=== PATIENT | female | born 1950 ===

== ENCOUNTER 2019-03-02 08:16 | Inpatient (IN) | payer MEDICARE, OTHER ==
--- NOTE | 2019-03-01 14:38 | NUR ---
[employer] translation services used to obtained medical history with Jaimee as concaver ID# [id number].
[2019-03-02] VITALS (13 sets, daily range): BP systolic 101–147; BP diastolic 54–82
[~2019-03-02] VITALS: Ht 162.6 cm; Wt 79.4 kg
[~2019-03-02 08:16] MED LIST: FUROSEMIDE20 M1 ORAL; LOSARTAN POTASS25 MG ORAL; METOPROLOL SUCC50 MG ORAL; OMEPRAZOLE20 M2 ORAL; PRAVASTATIN SOD20 M1 ORAL; ceFAZolin sod 1 GM in NS 55 ML IVPB ONE
[2019-03-02] MEDS ORDERED: NAPROXEN250 M1 PO (09:10)
[2019-03-02] MEDS ORDERED: LOSARTAN-HCTZ1 EAC1 ORAL (09:10)
[2019-03-02] MEDS ORDERED: ASPIRIN81 MG ORAL (09:10)
[2019-03-02] MEDS ORDERED: PRAVASTATIN SOD40 M1 ORAL (09:10)
[2019-03-02] MEDS ORDERED: OYSTER SHELL 51 EAC2 PO (09:10)
[2019-03-02] MEDS ORDERED: LINZESS145 MCG PO (09:10)
[2019-03-02] MEDS ORDERED: MULTAQ400 MG ORAL (09:10)
[2019-03-02] MEDS ORDERED: OMEPRAZOLE20 M3 ORAL (09:10)
[2019-03-02] MEDS ORDERED: SYNTHROID25 MCG ORAL (09:10)
[2019-03-02] MEDS ORDERED: METOPROLOL SUCC50 MG ORAL (09:10)
--- NOTE | 2019-03-02 10:24 | Anethesia Preoperative Eval ---
Anesthesia Pre-op PMH/ROS General Date of Evaluation: Mar 02, 2019 Anesthesiologist: Hal ASA Score: ASA 3 Mallampati Score Class I : Soft palate, uvula, fauces, pillars visible Class II: Soft palate, uvula, fauces visible Class III: Soft palate, base of uvula visible Class IV: Only hard plate visible Mallampati Classification: Class II Surgeon: Myrna Diagnosis: Bladder prolapse Surgical Procedure: Cystoscopy, cystocele, vaginal sling Anesthesia History: none Family History: no anesthesia problems Allergies: Coded Allergies: PENICILLINS (Verified Allergy, Intermediate, swelling; throat closes- up, 03/01/19) Medications: see eMAR Patient NPO?: Yes NPO Date: Mar 01, 2019 NPO Time: 1999 Past Medical History Cardiovascular: Reports: HTN, arrhythmia, other - HLD; Denies: CAD, OR, valve dz Pulmonary: Denies: asthma, COPD, MIMI, other Gastrointestinal/Genitourinary: Reports: GERD, other - bladder prolapse; Denies: CRI, ESRD Neurologic/Psychiatric: Reports: CVA; Denies: dementia, depression/anxiety, TIA, other Endocrine: Reports: hypothyroidism; Denies: DM, steroids, other HEENT: 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 Exam Physician Exam Last Vital Signs Date Time Temp Pulse Resp B/P (MAP) Pulse Ox O2 Delivery O2 Flow Rate FiO2 03/02/19 09:30 Room Air 03/02/19 09:01 98.7 64 18 138/82 (100) 99 Constitutional: NAD Cardiovascular: RRR Respiratory: CTA Airway Exam Mallampati Score: Class II MO: full ROM: full Dentures: upper, lower Anesthesia Pre-op A/P Labs see chart Studies Pre-op Studies: EKG - sr Risk Assessment & Plan Assessment: ASA III Plan: GA Status Change Before Surgery: No Pre-Antibiotics Drug: Susan Limon MD Mar 02, 2019 10:24
[2019-03-02] MEDS ORDERED: NeoSporin Gu Irrig 1ml Amp IRRIG ONE (10:43)
[2019-03-02] MEDS ORDERED: Bupivacaine 0.25% Inj 30ml INJ ONE (10:43)
[2019-03-02] MEDS ORDERED: Bacitracin 50000 Units Vial ONE (10:43)
[2019-03-02] MEDS ORDERED: Bupivacaine w/Epi 0.5% 30ml Vial INJ ONE (10:43)
[2019-03-02] MEDS ORDERED: Clindamycin 600mg 50 ML IV ONE (10:44)
[2019-03-02] MEDS ORDERED: ProvayBlue 5mg/ml 10ml amp INJ ONE (10:45)
[2019-03-02] MEDS ORDERED: Propofol 200mg/20ml IV ONE (10:50)
[2019-03-02] MEDS ORDERED: Lidocaine 1% MPF 10mg/ml 5ml ONE (10:50)
[2019-03-02] MEDS ORDERED: fentaNYL 100 mcg/2 mL IV ONE (10:50)
[2019-03-02] MEDS ORDERED: Zemuron 50mg/5ml Inj IV ONE (10:56)
[2019-03-02] MEDS ORDERED: LR 1000ml ONE (11:00)
[2019-03-02] MEDS ORDERED: Sterile Water For Irrig 2000ml IRRIG ONE (11:00)
[2019-03-02] MEDS ORDERED: NS Irrig 2000ml IRRIG ONE (11:00)
[2019-03-02] MEDS ORDERED: Sterile Water Irrig 1000ml IRRIG ONE (11:00)
--- NOTE | 2019-03-02 11:11 | Pre-Procedure Note/Attestation ---
Pre-Procedure Note/Attestation Complete Prior to Procedure Planned Procedure: not applicable Procedure Narrative: cystocele rectocele repair vaginal sling cystoscopy Indications for Procedure Pre-Operative Diagnosis: prolapse Attestation I attest that I discussed the nature of the procedure; its benefits; risks and complications; and alternatives (and the risks and benefits of such alternatives ), prior to the procedure, with the patient (or the patient's legal market survey representative). I attest that, if there was a reasonable possibility of needing a blood transfusion, the patient (or the patient's legal market survey representative) was given the [facility] standardized written summary, pursuant to the Ced Yobany Blood Safety Act ([place] Health and Safety Code # 1645, as amended). I attest that I re-evaluated the patient just prior to the surgery and that there has been no change in the patient's H&P, except as documented below: Erik Norris MD Mar 02, 2019 11:11
[2019-03-02] MEDS ORDERED: LR 1000ml 1,000 ML IVLG SCH (11:38)
[2019-03-02] MEDS ORDERED: Ketorolac 30mg Inj IV PRN ×2 (11:45→15:01)
[2019-03-02] MEDS ORDERED: Hydromorphone 0.5mg/0.5ml inj IVP PRN (11:45)
[2019-03-02] MEDS ORDERED: LORazepam Inj 2mg/ml 1ml IV PRN (11:45)
[2019-03-02] MEDS ORDERED: fentaNYL 100 mcg/2 mL IV PRN (11:45)
[2019-03-02] MEDS ORDERED: DiphenhydrAMINE 50mg/ml Inj IVP PRN (11:45)
--- NOTE | 2019-03-02 12:41 | Brief Operative Note ---
Immediate Post Operative Note Operative Note Pre-op Diagnosis: prolapse Procedure: cystocele and rectocele reapir vaginal sling cystoscopy Post-op Diagnosis: same Post-op Diagnosis: same as pre-op Surgeon: Bradford Norris Anesthesia: general Specimen: none Complications: none Condition: stable Fluids: 1000 Estimated Blood Loss: minimal Drains: none Implant(s) used?: No Erik oNrris MD Mar 02, 2019 12:41
[2019-03-02] MEDS ORDERED: HYDROcodone/Acetamin 5/325 tab ORAL PRN (12:45)
--- NOTE | 2019-03-02 12:47 | Immediate Post-Op Evaluation ---
Immediate Post-Op Evalulation Immediate Post-Op Evalulation Procedure: Vaginal sling, cystocele repair, rectocele repair, cystoscopy Date of Evaluation: Mar 02, 2019 Time of Evaluation: 12:48 IV Fluids: 800 Blood Products: 0 Estimated Blood Loss: min Urinary Output: 0 Blood Pressure Systolic: 147 Blood Pressure Diastolic: 65 Pulse Rate: 58 Respiratory Rate: 16 O2 Sat by Pulse Oximetry: 100 Temperature (Fahrenheit): 97.5 Pain Score (1-10): 0 Nausea: No Vomiting: No Complications 0 Patient Status: awake, reacts, patent, none Hydration Status: adequate Drug: Clindamycin 600mg Given Within 1 Hr of Incision: Yes Susan Cole MD Mar 02, 2019 12:47
[2019-03-02 13:51] LABS: BASOPHILS % (AUTO) 0.8 % (0.0-2.0); HEMATOCRIT 37.2 % (37.0-47.0); HEMOGLOBIN 12.4 G/DL (12.0-16.0); LYMPHOCYTES % (AUTO) 25.8 % (20.0-45.0); MEAN CORPUSCULAR VOLUME 92 FL (80-99); MONOCYTES % (AUTO) 7.8 % (1.0-10.0); NEUTROPHILS % (AUTO) 64.6 % (45.0-75.0); PLATELET COUNT 218 K/UL (150-450); RED BLOOD COUNT 4.06 M/UL (4.20-5.40); RED CELL DISTRIBUTION WIDTH 11.6 % (11.6-14.8); WHITE BLOOD COUNT 6.9 K/UL (4.8-10.8)
[2019-03-02] MEDS ORDERED: ceFAZolin sod 2 GM in D5W 110 ML IV SCH (14:00)
[2019-03-02 14:06] LABS: ANION GAP 8 mmol/L (5-15); BLOOD UREA NITROGEN 15 mg/dL (7-18); CALCIUM 9.1 MG/DL (8.5-10.1); CARBON DIOXIDE 29 MMOL/L (21-32); CHLORIDE 108 MMOL/L (98-107); CREATININE 0.7 MG/DL (0.55-1.30); POTASSIUM 3.5 MMOL/L (3.5-5.1); SODIUM 145 MMOL/L (136-145)
--- NOTE | 2019-03-02 14:15 | NUR ---
NURSE NOTES: Received report from MIKA Zaldivar. Pt in bed, resting, A/Ox4, no complaints of pain, assessment done, see flowsheet, no apparent bleeding noted, Robbins in place and draining, vitals obtained and stable, will continue vitals per unit protocol for post-op pt. Family at bedside, bed in lowest position, call light within reach.
[2019-03-02] MEDS ORDERED: HYDROmorphone 1mg/ml Carpuject IVP PRN (15:01)
--- NOTE | 2019-03-02 15:04 | NUR ---
NURSE NOTES: Left message for Dr. Norris regarding Ancef order, pt has allergy to PCN.
[2019-03-02] MEDS: D5 1/2NS w/KCl 20mEq 1,000 ML IV SCH (16:13)
--- NOTE | 2019-03-02 19:20 | NUR ---
NURSE NOTES: Report taken from MIKA Madrigal. Patient is awake and in bed, A&Ox4, family at bedside. No signs of distress on room air. IV site c/d/i and patent, D5 1/2 NS +20KCl at 100 ml/hr runnings, will discharge IV once patient able to intake 500cc fluids PO. MD left order to contact within certain parameters of BP, Temp, and UO, continue to monitor. No skin issues present. Surgical site dressing c/d/i, no excessive drainage. Robbins c/d/i and flowing light blue urine, color due to fluid given during procedure. Bed in lowest position, call light within reach.
[2019-03-03] VITALS: BP 87/46
--- NOTE | 2019-03-03 00:10 | NUR ---
NURSE NOTES: Patients BP 87/46. Contacted MD per order, awaiting return call.
[2019-03-03] MEDS: D5 1/2NS w/KCl 20mEq 1,000 ML IV SCH (02:11)
--- NOTE | 2019-03-03 02:15 | NUR ---
NURSE NOTES: Patient urine output over 8 hrs ([id number]): 750 cc. Urine indigo/green color.
[2019-03-03 07:04] LABS: ANION GAP 8 mmol/L (5-15); BLOOD UREA NITROGEN 10 mg/dL (7-18); CALCIUM 8.1 MG/DL (8.5-10.1); CARBON DIOXIDE 28 MMOL/L (21-32); CHLORIDE 107 MMOL/L (98-107); CREATININE 0.8 MG/DL (0.55-1.30); POTASSIUM 3.9 MMOL/L (3.5-5.1); SODIUM 143 MMOL/L (136-145)
[2019-03-03 07:05] LABS: BASOPHILS % (AUTO) 0.4 % (0.0-2.0); EOSINOPHILS % (AUTO) 0.4 % (0.0-3.0); HEMATOCRIT 30.1 % (37.0-47.0); LYMPHOCYTES % (AUTO) 17.4 % (20.0-45.0); MEAN CORPUSCULAR VOLUME 92 FL (80-99); MONOCYTES % (AUTO) 9.4 % (1.0-10.0); NEUTROPHILS % (AUTO) 72.3 % (45.0-75.0); PLATELET COUNT 193 K/UL (150-450); RED BLOOD COUNT 3.28 M/UL (4.20-5.40); RED CELL DISTRIBUTION WIDTH 11.7 % (11.6-14.8); WHITE BLOOD COUNT 8.2 K/UL (4.8-10.8)
--- NOTE | 2019-03-03 07:45 | NUR ---
HAND-OFF: Report given to MIKA Dunaway. Surgical packing removed per MD order. Patient awake and stable.
--- NOTE | 2019-03-03 07:54 | NUR ---
NURSE NOTES: During shift change patient alert awake with out no distress FC in place draining pale yellow urine, patient eating breakfast, bed on low position locked, call light with in reach, SCD on, reported pain 4/10 in lower abdomen, patient also reported the pain was stronger but after the packing is removed pain decreased. will continue to monitor.
[2019-03-03] MEDS ORDERED: LEVAQUIN500 MG ORAL (08:33)
--- NOTE | 2019-03-03 08:40 | NUR ---
CASE MANAGEMENT:REVIEW 03/02/19 68 YR OLD FEMALE HERE FOR ELECTIVE SURGERY SI: PROLAPSED BLADDER 98.7 64 18 138/82 99% ON RA IS; TO SURGERY FOR: CYSTOCELE & RECTOCELE REPAIR VAGINAL SLING CYSTOSCOPY : TO MED/SURG 3 EAST POST OP INTERQUAL CRITERIA MET
[2019-03-03 08:45] VITALS: BP 105/54
--- NOTE | 2019-03-03 09:10 | NUR ---
PT EVALUATION NOTE Patient seen for initial evaluation, please see evaluation for details. Patient presents with generalized weakness and impaired mobility. Patient will benefit from skilled inpatient PT intervention to address strength, balance, endurance, safety and functional mobility to return to prior level of function. Anticipate discharge home with family assistance once cleared by MD. Do not anticipate any DME needs. Addendum: 03/03/19 at 1301 by EVER PATTEN PT Amended: Links added.
--- NOTE | 2019-03-03 11:03 | 48 Hour Post Anesthesia Eval ---
Post Anesthesia Evaluation Procedure: Vaginal sling, cystocele repair, rectocele repair, cystoscopy Date of Evaluation: Mar 03, 2019 Time of Evaluation: 11:02 Blood Pressure Systolic: 108 0: 56 Pulse Rate: 72 Respiratory Rate: 20 Temperature (Fahrenheit): 97.6 O2 Sat by Pulse Oximetry: 98 Airway: patent Nausea: No Vomiting: No Pain Intensity: 1 Hydration Status: adequate Cardiopulmonary Status: stable Mental Status/LOC: patient returned to baseline Follow-up Care/Observations: n/a Post-Anesthesia Complications: none Follow-up care needed: ready to discharge Manoj Jones MD Mar 03, 2019 11:03
[2019-03-03 12:00] VITALS: BP 101/48
--- NOTE | 2019-03-03 15:23 | NUR ---
NURSE NOTES: Pt. attempt to walk x3, once with PT , x2 with RN complained of light headedness and BP dropped when patient stood up MD notified discharge canceled, ordered medication refilled. encouraged fluid intake will continue to monitor.
[2019-03-03 16:00] VITALS: BP 109/49
--- NOTE | 2019-03-03 16:30 | NUR ---
DISCHARGE PLANNING PATIENT HAS BEEN REFERRED TO [facility] T: [phone] F: [phone]
--- NOTE | 2019-03-03 18:15 | History and Physical Report ---
DATE OF ADMISSION: 03/02/2019 HISTORY OF PRESENT ILLNESS: This is a very pleasant 68-year-old female who has undergone bladder surgery yesterday by Dr. Erik Norris. She is postop day #1. She is feeling comfortable. A Robbins catheter is in place. There has been no overnight issues. PAST MEDICAL HISTORY: Hypertension, hypothyroidism, hyperlipidemia, osteoarthrosis, obesity, depression, fibromyalgia, previous right eye optic neuropathy. SURGERIES: None. HOME MEDICATIONS: Include pravastatin, Linzess, aspirin, Synthroid, omeprazole, Lasix, and Naprosyn. SOCIAL HISTORY: No history of alcohol or tobacco usage. REVIEW OF SYSTEMS: Denies any headaches, hematemesis, melena, hematochezia, or weight loss. PHYSICAL EXAMINATION: GENERAL: Reveals a 68-year-old female. VITAL SIGNS: Blood pressure 130/70, heart rate , she is afebrile. HEENT: Unremarkable. LUNGS: Clear breath sounds bilaterally. ABDOMEN: Soft. NEUROLOGIC: Nonfocal. LABORATORY DATA: Lab testing overnight showed normal CBC and BMP. Hemoglobin is 12. IMPRESSION: 1. Postop day #1, status post bladder surgery. 2. Hypertension. 3. Hypothyroidism. 4. Depression. 5. Fibromyalgia. DISCUSSION: The patient cleared for discharge. I will write a prescription for Levaquin that she can take. Robbins will be left in place. We will order home health for PT and Robbins care. Outpatient follow up. Melvin Dueñas M.D. DR: VIKA JOB#: [id number] CC:
--- NOTE | 2019-03-03 19:13 | NUR ---
HAND-OFF: Report given to MIKA Marquez patient stable condition awake alert with out no distress, FC in place draining well, call light with in reach bed lower position locked, endorsed to MIKA Marquez regarding oral Levaquin refilled and in pharmacy.
[2019-03-03 20:00] VITALS: BP 107/72
[2019-03-03 21:00] VITALS: BP 109/70
--- NOTE | 2019-03-03 22:15 | Operative Note - Dictated ---
DATE OF OPERATION: 03/02/2019 PREOPERATIVE DIAGNOSIS: Vaginal prolapse. POSTOPERATIVE DIAGNOSIS: Vaginal prolapse. OPERATIONS: Transvaginal cystocele repair, rectocele repair, vaginal wall sling, and cystoscopy. OPERATED BY: Erik Norris M.D. ANESTHESIA: General. FINDINGS: Total vaginal prolapse. INDICATIONS FOR SURGERY: The patient developed stress and urge incontinence as well as vaginal anterior and posterior prolapse. Treatment options were explained to her in great length including all potential complications and she signed the consent. DESCRIPTION OF PROCEDURE: She was brought to the operating room, placed in lithotomy position, and prepped and draped in standard fashion. Under general anesthesia, goalpost midline incision was made and bladder was from the vaginal mucosa and dissected all the way to the retrovesical space. Retrovesical space was entered, identified sacral-spinal muscles. Using elevated anterior device made by [employer], bladder was placed in the sacrospinous ligaments and secured to the cervix from the uterus and to the lateral sides of the vaginal wall creating a nice Hammock suspension of the bladder. After that, mid urethral device was placed using MiniArc and secured in the mid urethra. Vagina was closed over the bladder and then formal rectocele repair with interrupted 0 Vicryl sutures was done supporting posterior vaginal wall. Cystoscopy was done showing no evidence of bladder perforation. Both ureteral orifices were intact. Robbins catheter was placed. Vaginal packing. Sponge count and instrument count were correct. The patient tolerated the procedure well. No evidence of complications. Erik Norris M.D. DR: MELISSA JOB#: [id number] CC:
[2019-03-04] VITALS: BP 121/54
[2019-03-04 04:00] VITALS: BP 105/61
--- NOTE | 2019-03-04 07:09 | NUR ---
HAND-OFF: Report given to MIKA Dunaway. Patient awake and hopeful to go home today. UO overnight was 1700cc. Patient in stable condition.
--- NOTE | 2019-03-04 07:54 | NUR ---
NURSE NOTES: During shift change patient alert awake with out no distress call light with in reach bed on low position locked seating on bed eating breakfast FC intact draining well.
[2019-03-04 08:00] VITALS: BP 101/63
--- NOTE | 2019-03-04 08:11 | Pulmonology Progress Note ---
Assessment/Plan Assessment/Plan IMPRESSION: 1. Postop day #2, status post bladder surgery. 2. Hypertension. 3. Hypothyroidism. 4. Depression. 5. Fibromyalgia. DISCUSSION: The patient is cleared for discharge. Held yesterday due to weakness and hypotension. Dc home on Levaquin that she can take. Robbins will be left in place. I will order home health for PT and Robbins care. Outpatient follow up. Subjective Interval Events: BP better today; feeling better Constitutional: Reports: no symptoms HEENT: Repors: no symptoms Respiratory: Reports: no symptoms Cardiovascular: Reports: no symptoms Gastrointestinal/Abdominal: Reports: no symptoms Genitourinary: Reports: no symptoms Allergies: Coded Allergies: PENICILLINS (Verified Allergy, Intermediate, swelling; throat closes- up, 03/01/19) Objective Last 24 Hour Vital Signs Date Time Temp Pulse Resp B/P (MAP) Pulse Ox O2 Delivery O2 Flow Rate FiO2 03/04/19 04:00 99.0 76 18 105/61 (76) 96 03/04/19 00:00 99.6 88 20 121/54 (76) 96 03/03/19 21:00 99.7 90 18 109/70 (83) 98 03/03/19 21:00 Nasal Cannula 2.0 03/03/19 20:31 99.5 03/03/19 20:00 101.3 92 20 107/72 (84) 98 03/03/19 16:00 99.6 83 20 109/49 (69) 98 03/03/19 12:00 99.8 85 20 101/48 (65) 98 03/03/19 11:03 72 20 98 03/03/19 10:52 97.7 03/03/19 09:00 Nasal Cannula 2.0 03/03/19 08:45 97.7 70 20 105/54 (71) 98 Intake and Output 03/03/19 03/04/19 18:59 06:59 Intake Total 980 ml Output Total 950 ml 1700 ml Balance 30 ml -1700 ml Intake Oral 980 ml Output Urine Total 950 ml 1700 ml General Appearance: no acute distress HEENT: normocephalic Respiratory/Chest: chest wall non-tender, lungs clear Cardiovascular: normal peripheral pulses, normal rate Abdomen: normal bowel sounds Current Medications Medications (Trade) Dose Ordered Sig/Birdie Route PRN Reason Start Time Stop Time Status Last Admin Dose Admin Acetaminophen (Tylenol) 650 mg Q4H PRN ORAL FEVER 03/02/19 15:02 04/01/19 15:01 03/03/19 20:01 Acetaminophen (Tylenol) 650 mg Q6H PRN ORAL Mild Pain (Pain Scale 1-3) 03/02/19 15:01 04/01/19 15:00 03/03/19 08:57 Acetaminophen/ Hydrocodone Bitart ([place] 5/325) 1 tab Q4H PRN ORAL Moderate Pain (Pain Scale 4-6) 03/02/19 12:45 03/09/19 12:44 Hydromorphone HCl (Dilaudid) 1 mg Q3H PRN IVP pain score 4-6 03/02/19 15:01 03/09/19 15:00 03/02/19 15:22 Ketorolac Tromethamine (Toradol 30mg) 15 mg Q6H PRN IV For Pain 03/02/19 15:01 03/07/19 15:00 Levofloxacin 100 ml @ 100 mls/hr Q24H IVPB 03/02/19 17:00 03/09/19 16:59 03/03/19 17:21 Ondansetron HCl (Zofran) 4 mg Q6H PRN IVP Nausea & Vomiting 03/02/19 12:45 04/01/19 12:44 03/02/19 16:12 Temazepam (Restoril) 7.5 mg DAILYPRN PRN ORAL Insomnia 03/02/19 15:02 03/09/19 15:01 03/03/19 22:01 Melvin Dueñas MD Mar 04, 2019 08:11
[2019-03-04 11:54] VITALS: BP 118/69
--- NOTE | 2019-03-04 15:42 | NUR ---
NURSE NOTES: Patient able to ambulate x2 once with PT and once with family readiness support assistant notified of discharge clearance and in the unit discharge teaching will be provided and will be DS as ordered by MD.
[2019-03-04 16:06] VITALS: BP 103/58
--- NOTE | 2019-03-04 18:27 | NUR ---
NURSE NOTES: Patient discharged from the unit stable condition, had a low grad fever and Tylenol given T. decreased to 99.4, during discharge patient accompanied by daughter and spouse. discharge instruction including catheter care provided fro patient and daughters, the FC changed to leg bag as ordered. Patient had appointment with Dr. sol Thursday for follow up. nurse called and contacted family will visit patient tomorrow. transported from unit to private vehicle with wheelchair transferred to the [facility]. Measuring cup for the urine given.
--- NOTE | 2019-03-07 14:20 | Discharge Summary ---
Discharge Summary Hospital Course Date of Admission Mar 02, 2019 at 08:16 Date of Discharge Mar 04, 2019 at 18:20 Admitting Diagnosis total vaginal prolapse Reason for Hospitalization: elective surgery ELIAN Musa is a 68 year old female who was admitted on Mar 02, 2019 at 08: 16 for total vaginal prolapse, The patient developed stress and urge incontinence as well as vaginal anterior and posterior prolapse. Treatment options were explained to her in great length, including all potential complications and she opted for surgery and signed the consent. Consultations dr Dueñas - IM Procedures s/p 03/02/[address] Norris Transvaginal cystocele repair, rectocele repair, vaginal wall sling, and cystoscopy. Hospital Course status post surgery course of recovery uneventful initially IV fluids antibiotics pain management was addressed , and pain was controlled hemodynamically stable ambulated freely use of incentive spirometry was encouraged while in the bed fall precautions maintained; safe for ambulation tolerated diet , IV fluids discontinued GI prophylaxis provided antiemetics were on board as needed blood pressure was closely monitored , remained stable Robbins catheter continued patient was instructed on Robbins care bowel regimen instituted patient was stable for discharge discharge instructions provided follow up with surgeon next week as arranged home health services were arranged for PT services and Robbins care continue Levaquin as ordered FINAL DIAGNOSES total vaginal prolapse s/p transvaginal cystocele repair, rectocele repair, vaginal wall sling, and cystoscopy HTN Hypothyroidism Depression Fibromyalgia Discharge Medications New Medications: Levofloxacin* (Levaquin*) 500 Mg Tablet 500 MG ORAL DAILY for 7 Days, TAB Continued Medications: Aspirin* (Aspirin*) 81 Mg Tab.chew 81 MG ORAL DAILY, TAB (This prescription has been renewed) Calcium Carbonate/Vitamin D3 (Oyster Shell 500-Vit D3 200 Pk) 1 Each Powd.pack 1 EACH PO DAILY, PACK (This prescription has been renewed) Dronedarone Hydrochloride (Multaq) 400 Mg Tablet 400 MG ORAL DAILY, TAB 0 Refills (This prescription has been renewed) Levothyroxine Sodium* (Synthroid*) 25 Mcg Tablet 50 MCG ORAL DAILY, TAB (This prescription has been renewed) Take in the morning on an empty stomach, at least 30 minutes before food. Linaclotide (Linzess) 145 Mcg Capsule 145 MCG PO DAILY, CAP (This prescription has been renewed) Losartan/Hydrochlorothiazide (Losartan-Hctz 100-25 Mg Tab) 1 Each Tablet 1 TAB ORAL DAILY, TAB (This prescription has been renewed) Metoprolol Succinate* (Metoprolol Succinate*) 50 Mg Tab.er.24h 50 MG ORAL DAILY, TAB (This prescription has been renewed) Naproxen (Naproxen) 250 Mg Tablet 250 MG PO PRN, TAB (This prescription has been renewed) Omeprazole (Omeprazole) 20 Mg Tablet.dr 20 MG ORAL DAILY, TAB (This prescription has been renewed) Pravastatin Sod (Pravastatin Sod) 40 Mg Tablet 40 MG ORAL BEDTIME, TAB (This prescription has been renewed) Discharge Condition Upon Discharge: stable Discharge Disposition Patient was discharged to Home with Home Health(06) Discharge Instructions Discharge Instructions Special Instructions I have been assigned to complete a D/C Summary on this account. I was not involved in the patient management Tatyana Cleveland NP Mar 07, 2019 14:20
== END 2019-03-04 18:20 | disposition home health service (06) | DRG 748 ==
LOC: SDSOVERFLO 08:16 → 3E 14:17
PROC: 0USG0ZZ Reposition Vagina, Open Approach (ICD-10-PCS; principal; 2019-03-02 11:00)
PROC: 0TSC0ZZ Reposition Bladder Neck, Open Approach (ICD-10-PCS; principal; 2019-03-02 11:00)
PROC: 0JQC0ZZ Repair Pelvic Region Subcutaneous Tissue and Fascia, Open Approach (ICD-10-PCS; principal; 2019-03-02 11:00)
PROC: 0JUC0JZ Supplement of Pelvic Region Subcutaneous Tissue and Fascia with Synthetic Substitute, Open Approach (ICD-10-PCS; principal; 2019-03-02 11:00)
DX: N81.10 Cystocele, unspecified (principal); N39.46 Mixed incontinence; N81.6 Rectocele; I10 Essential (primary) hypertension; E03.9 Hypothyroidism, unspecified; E78.5 Hyperlipidemia, unspecified; M19.90 Unspecified osteoarthritis, unspecified site; M79.7 Fibromyalgia; F32.9 Major depressive disorder, single episode, unspecified
CPT/HCPCS: 36415; 80048; 85025; 87081; 94003; 94150; J2405; S0077